=== PATIENT | male | born 1975 | race Caucasian/White ===

== ENCOUNTER 2019-07-29 07:11 | Observation (INO) ==
[2019-07-29] MEDS ORDERED: NITROGLYCERIN SL 0.4 MG TABLET SL PRN (07:33)
[2019-07-29] MEDS ORDERED: ASPIRIN 325 MG TABLET PO STA (07:33)
[2019-07-29] MEDS ORDERED: HEPARIN 5,000 UNIT/1 ML VIAL IV ONE (07:33)
[2019-07-29] MEDS ORDERED: NITROGLYCERIN SL 0.4 MG TABLET SL ONE (07:37)
[2019-07-29 07:47] LABS: Basophils # 0.1 10*3/uL (0.0-0.2); Basophils % 0.8 % (0.0-0.8); Eosinophils # 0.1 10*3/uL (0.0-0.87); Eosinophils % 1.7 % (0.00-10.9); Hemoglobin 17.3 GM/DL (14.0-18.0); Immature Granulocytes % 0.3 %; Immature Granulocytes Absolute 0.02 #; Lymphocytes # 1.6 10*3/uL (1.4-4.0); Lymphocytes % 25.2 % (21.2-54.2); Mean Corpuscular HGB Conc 33.3 GM/DL (32-36); Mean Corpuscular Volume 96.1 FL (87-102); Mean Platelet Volume 9.3 FL (9.6-12.0); Monocytes % 5.4 % (1.7-12.7); Neutrophils % 66.6 % (38.7-73.9); Platelet Count 208 T/CUMM (130-400); Red Blood Count 5.41 MC/CUMM (3.8-5.5); Red Cell Distribution Width 14.6 % (9.3-17.3); White Blood Count 6.4 T/CUMM (4-12)
[2019-07-29 08:04] LABS: Calcium 8.6 MG/DL (8.5-10.1); Osmolality,Calculated 275.5 MOS/KG (273-304)
[2019-07-29] MEDS ORDERED: ENOXAPARIN 80 MG/0.8 ML SYRINGE SUBCUT ONE (08:08)
[2019-07-29] MEDS ORDERED: METOPROLOL TARTRATE 5 MG/5 ML VIAL IV STA (08:08)
[2019-07-29] MEDS ORDERED: MAGNESIUM SULF RIDER 2 GM in PREMIX 1 EACH IV PRN (08:11)
[2019-07-29] MEDS ORDERED: POTASSIUM CHLORIDE RIDER 10 MEQ in PREMIX 1 EACH IV PRN (08:11)
[2019-07-29] MEDS ORDERED: MAGNESIUM SULF RIDER 4 GM in PREMIX 1 EACH IV PRN (08:11)
[2019-07-29 08:14] LABS: Amorphous Crystals,Urine Occasional /HPF (Few); Apearance,Urine Slightly Hazy (Clear); Bacteria,Urine Occasional /HPF (Few); Bilirubin,Urine Negative (Negative); Blood, Urine Negative (Negative); Glucose,Urine (UA) Negative (Negative); Ketones,Urine Negative (Negative); Mucus,Urine Occasional /LPF (Occasional); Nitrite,Urine Negative (Negative); Protein,Urine 30 MG/DL; RBC,Urine 2 /HPF (0-4); Squamous Epithelial Cell,Urine Occasional /HPF (0-10); Urine Color Yellow (Yellow); Urine Urobilinogen < 2.0 EU/DL (0.2-1.0); WBC,Urine <1 /HPF (0-6)
[2019-07-29] MEDS ORDERED: HYDROmorphone 2 MG/1 ML VIAL ONE (08:16)
[2019-07-29] MEDS ORDERED: MIDAZOLAM 2 MG/2 ML VIAL ONE (08:16)
[2019-07-29] MEDS ORDERED: VERAPAMIL 5 MG/2 ML VIAL ONE (08:17)
[2019-07-29] MEDS ORDERED: ALUMINUM/MAGNES/SIMETH MAX STR 30 ML UDCUP PO PRN (08:18)
[2019-07-29] MEDS ORDERED: BISACODYL 5 MG TABLET PO PRN (08:18)
[2019-07-29] MEDS ORDERED: ONDANSETRON 4 MG/2 ML VIAL IV PRN (08:18)
[2019-07-29] MEDS ORDERED: MORPHINE 4 MG/1 ML VIAL IV PRN (08:18)
[2019-07-29] MEDS ORDERED: ZALEPLON 5 MG CAPSULE PO PRN (08:18)
[2019-07-29] MEDS ORDERED: hydrALAZINE 20 MG/1 ML VIAL IV PRN (08:18)
[2019-07-29] MEDS ORDERED: DIAZEPAM 5 MG TABLET PO ONE (08:18)
[2019-07-29] MEDS ORDERED: ACETAMINOPHEN 325 MG TABLET PO PRN (08:18)
[2019-07-29] MEDS ORDERED: diphenhydrAMINE CAP 25 MG CAPSULE PO ONE (08:18)
[2019-07-29 09:02] LABS: Barbiturates Screen,Urine Negative (Negative); Benzodiazepines Screen,Urine Negative (Negative); Cannabinoid Screen,Urine Negative (Negative); Opiate Screen,Urine Negative (Negative); Phencyclidine Screen,Urine Negative (Negative)
[2019-07-29] MEDS: METOPROLOL TARTRATE 25 MG TABLET PO SCH ×2 (12:21→20:47)
[2019-07-29] MEDS: SODIUM CHLORIDE 0.45% 1,000 ML IV SCH ×2 (12:21→19:35)
[2019-07-29] MEDS: PANTOPRAZOLE 40 MG TABLET PO SCH (12:22)
[2019-07-29] MEDS: CLOPIDOGREL 75 MG TABLET PO SCH (12:22)
[2019-07-29] MEDS: ISOSORBIDE MONONITRATE 30 MG TABLET PO SCH (12:22)
[2019-07-29 12:23] LABS: Troponin I 0.187 NG/ML (0.00-0.045)
[2019-07-29 12:24] LABS: Troponin I 0.607 NG/ML (0.00-0.045)
[2019-07-29 14:58] LABS: Troponin I 0.824 NG/ML (0.00-0.045)
[2019-07-29] MEDS ORDERED: ROSUVASTATIN 20 MG TABLET PO SCH (21:00)
[2019-07-30 06:28] LABS: Basophils # 0.1 10*3/uL (0.0-0.2); Basophils % 0.6 % (0.0-0.8); Eosinophils # 0.1 10*3/uL (0.0-0.87); Eosinophils % 0.6 % (0.00-10.9); Hematocrit 46.9 VOL% (42.0-52.0); Hemoglobin 15.6 GM/DL (14.0-18.0); Immature Granulocytes % 0.2 %; Immature Granulocytes Absolute 0.02 #; Lymphocytes # 2.4 10*3/uL (1.4-4.0); Lymphocytes % 29.5 % (21.2-54.2); Mean Corpuscular HGB Conc 33.3 GM/DL (32-36); Mean Corpuscular Volume 95.3 FL (87-102); Monocytes % 5.8 % (1.7-12.7); Neutrophils % 63.3 % (38.7-73.9); Platelet Count 191 T/CUMM (130-400); Red Blood Count 4.92 MC/CUMM (3.8-5.5); Red Cell Distribution Width 14.6 % (9.3-17.3); White Blood Count 8.1 T/CUMM (4-12)
[2019-07-30 07:33] LABS: Osmolality,Calculated 267.1 MOS/KG (273-304); Risk Ratio 3.94; VLDL CHOLESTEROL 19.2 MG/DL
[2019-07-30 08:15] VITALS: BP 169/81
[2019-07-30] MEDS ORDERED: ENOXAPARIN 40 MG/0.4 ML SYRINGE SUBCUT SCH (08:30)
[2019-07-30] MEDS ORDERED: ASPIRIN EC 81 MG TABLET PO SCH (09:00)
[2019-07-30] MEDS: METOPROLOL TARTRATE 25 MG TABLET PO SCH (09:01)
[2019-07-30] MEDS: ISOSORBIDE MONONITRATE 30 MG TABLET PO SCH (09:01)
[2019-07-30] MEDS: CLOPIDOGREL 75 MG TABLET PO SCH (09:01)
[2019-07-30] MEDS: PANTOPRAZOLE 40 MG TABLET PO SCH (09:01)
[2019-07-30] MEDS: SODIUM CHLORIDE 0.45% 1,000 ML IV SCH ×2 (09:03→09:05)
== END 2019-07-30 11:38 | disposition home or self-care (01) ==
LOC: N.EDINP 07:11 → N.ED 07:11 → N.EDINP 08:06 → N.TELEN 10:40
PROVIDERS: ADMIT Internal Medicine Cardiovascular Disease; ATTEND Internal Medicine Cardiovascular Disease
PROC: CLCCHCL (ICD-10-PCS; 2019-07-29 09:45)